=== PATIENT | female | born 1940 | race Caucasian/White ===

== ENCOUNTER → 2017-09-20 09:30 | Outpatient (CLI) | payer MEDICARE, OTHER, SELFPAY | PROVIDERS: PCP Nurse Practitioner Family; Visit Provider Nurse Practitioner Family | DX: M85.851 Other specified disorders of bone density and structure, right thigh (principal); Z78.0 Asymptomatic menopausal state; R29.890 Loss of height; E55.9 Vitamin D deficiency, unspecified; Z87.891 Personal history of nicotine dependence | CPT/HCPCS: 77080 ==

== ENCOUNTER 2017-11-20 20:49 | Emergency (ER) | payer MEDICARE, OTHER, SELFPAY ==
--- NOTE | 2017-11-20 21:02 | DI.RAD.S_ITS ---
PROCEDURE: XR CHEST 1V INDICATIONS: chest pain TECHNIQUE: One view of the chest was acquired. COMPARISON: [facility], [facility], CHEST 2 VIEW, 05/11/2013, 15:28. [facility], [facility], CHEST 2 VIEW, 10/03/2012, 15:35. [facility], [facility], CHEST 2 VIEW, 05/11/2013, 15:28. FINDINGS: Surgical changes and devices: None. Lungs and pleura: No pleural effusions or pneumothorax. Lungs are clear. Mediastinum: Mediastinal contours appear normal. Heart size is normal. Bones and chest wall: Chronic left rib fractures stable. No suspicious bony lesions. Overlying soft tissues appear unremarkable. IMPRESSION: No acute cardiopulmonary disease process. Dictated by: Janina Felder MD, PhD on 11/20/2017 at 21:41 Approved by: Janina Felder MD, PhD on 11/20/2017 at 21:42
[2017-11-20] MEDS: ASPIRIN 81 MG TAB 324 MG PO (21:17)
[2017-11-20 21:22] VITALS: BP 147/66; PULSE 66; RESP 16; TEMP 36.6; O2SAT 100
[2017-11-20 21:23] LABS: Add Manual Diff / Slide Review NO; Basophils Percent Auto 1.2 % (0-2); Eosinophils Percent Auto 0.1 % (2-4); Hematocrit 37.8 % (36-46); Hemoglobin 12.9 g/dL (12.0-16.0); Lymphocytes Percent Auto 9.7 % (25-40); Mean Corpuscular HGB Conc 34.1 % (30-36); Mean Corpuscular Hemoglobin 28.5 PG (26-34); Mean Corpuscular Volume 83.8 fL (80-100); Monocytes Percent Auto 5.2 % (3-14); Neutrophils Absolute Auto 9100 /uL (3000-5900); Neutrophils Percent Auto 83.8 % (50-75); Platelet Count 185 X10^3/uL (150-400); Red Blood Cell Count 4.52 X10^6/uL (4.0-5.2); Red Cell Distribution Width 16.1 % (11.6-14.8); White Blood Cell Count 10.9 X10^3/uL (4.5-11.0)
[2017-11-20 21:26] LABS: Alanine Aminotransferase 25 IU/L (9-52); Albumin Globulin Ratio 1.5 (1.0-2.8); Alkaline Phosphatase 73 U/L (38-126); Aspartate Aminotransferase 22 IU/L (14-36); BUN Creatinine Ratio 31.4 (6-22); Blood Urea Nitrogen 22 mg/dL (7-17); Calcium 9.4 mg/dL (8.4-10.2); Carbon Dioxide 27 mmol/L (22-32); Chloride 102 mmol/L (98-107); Creatine Kinase 48 U/L (30-135); Estimated Glomerular Filt Rate > 60.0 mL/min (>60); Globulin 2.7 g/dL (1.7-4.1); Glucose 103 mg/dL (80-110); HEMOLYSIS 24 (0-50); Lipase 94 U/L (23-300); Potassium 3.4 mmol/L (3.4-5.1); Sodium 139 mmol/L (137-145); Total Protein 6.7 g/dL (6.3-8.2)
[2017-11-20 21:28] VITALS: BP 147/66; PULSE 66; RESP 16; TEMP 36.6; O2SAT 100
[2017-11-20 21:39] LABS: Troponin I < 0.012 ng/mL (0.01-0.034)
[2017-11-20] MEDS: SODIUM CHLORIDE 0.9% 1,000 ML 150 ML IV (21:45)
--- NOTE | 2017-11-20 21:57 | DI.CT.S_ITS ---
PROCEDURE: CT ANGIO CHEST PE PROTOCOL INDICATIONS: CP, SOB, hypoxia. Use of exogenous estrogen, tachycardic TECHNIQUE: After the administration of intravenous contrast, 2 mm thick sections acquired from the pulmonary apices to the posterior costophrenic angles. 3-dimensional maximum intensity projection (MIP) coronal and sagittal reformats were then acquired through the thorax. For radiation dose reduction, the following was used: automated exposure control, adjustment of mA and/or kV according to patient size. COMPARISON: [facility], CT, ABDOMEN/PELVIS WITH CONTRAST, 09/18/2012, 15:45. [facility], CR, XR CHEST 1V, 11/20/2017, 21:31. FINDINGS: Image quality: Excellent. Pulmonary arteries: Pulmonary arteries are normal in size, and demonstrate no intraluminal filling defects to suggest central pulmonary embolism. Lungs and pleura: No infiltrate or pleural effusion. There is a 3 mm groundglass nodule in the right middle lobe (series 5 image 33). A 4 mm nodule is also noted in the right middle lobe (series 5 image 35). There are scars in lingula. No pleural effusions or pneumothorax. Central and peripheral airways are patent. Mediastinum: Heart size is normal, without pericardial effusion. No mediastinal or hilar adenopathy. Thoracic aorta is normal in caliber and enhancement. Esophagus is normal in caliber. Small hiatal hernia. Bones and chest wall: No suspicious bony lesions. Ribs and thoracic spine appear intact throughout. Thyroid gland is atrophic. No axillary or supraclavicular adenopathy. Abdomen: There are low-density nodule is seen liver, most likely hepatic cysts. Visualized upper abdominal solid organs appear normal in the early arterial phase of enhancement. IMPRESSION: 1. No evidence for central canal present. 2. A couple of subcentimeter lung nodules in the right middle lobe. Please see enclosed followup recommendation. 3. Multiple hepatic cysts Fleischner Society criteria for SOLID lung nodule followup. Nodule size (mm)Low-risk patientHigh-risk patient?4No follow-up neededFollow-up at 12 mo; if no change, no further follow-up>0-1Hricdk-bf CT at 12 mo; if no change, no further follow-up needed.Initial follow-up CT at 6-12 mo, then 18-24 mo if no change. >6-8Initial follow-up CT at 6-12 mo, then 18-24 mo if no change. Initial follow-up CT at 3-6 mo, then 9-12 mo and 24 mo if no change. >8Follow-up CT at 3, 9, 24 mo. Or PET and/or biopsy.Same as for low-risk pts. Fleischner Society criteria for SUB-SOLID lung nodule followup. Solitary pure ground-glass nodules5 mm or lessNo followup needed. >5 mm3 mo follow-up CT to confirm persistence. Then annual CT for 3 years. Part-solid nodules3 mo follow-up CT to confirm persistence. If persistent with solid component <5 mm, annual CT for at least 3 years. If solid component is 5 mm or more, biopsy or surgical resection. Consider PET-CT for lesions > 10 mm. Multiple sub-solid nodulesPure ground glass nodules [address] at 2 and 4 years. Pure ground glass nodules >5 mm without dominant lesion. [address] to confirm persistence, then annual followup CT for at least 3 years. Dominant nodule(s) with part-solid or solid component. [address] to confirm persistence. If persistent, consider biopsy or surgical resection, aryan if lesions have >5 mm solid component. Dictated by: Libia Pinzon M.D. on 11/21/2017 at 7:35 Transcribed by: AIDE on 11/21/2017 at 7:38 Approved by: Libia Pinzon M.D. on 11/21/2017 at 10:25
--- NOTE | 2017-11-20 22:01 | ED_ITS ---
HPI - Chest Pain General Chief Complaint: Chest Pain Stated Complaint: LT SIDED CHEST PAIN, HIGH BP Time Seen by Provider: 11/20/17 21:02 Source: patient Mode of arrival: ambulatory Limitations: no limitations History of Present Illness HPI narrative: 76-year-old female presents to the emergency department at the request of her primary care provider for the evaluation of sharp and stabbing, reproducible, pleuritic-type left-sided chest pain that woke her from sleep at 2 :00 a.m.. She denies any shortness of breath other than it hurting to take a deep breath. She is not dizzy nor weak or lightheaded. She denies any history of cancer, blood clots, or recent travel, however she does use exogenous estrogens. She denies any injury or overuse. MD complaint: chest pain Onset (ago): hour(s) Duration: intermittent Onset: awoke with symptoms Pain location: left chest Severity: moderate Quality: sharp Pain radiation: none Relieving factors: rest Exacerbating factors: inspiration Related Data Previous Rx's Medication Instructions Recorded atorvastatin [Lipitor] 10 mg PO HS #90 tab 10/01/16 levothyroxine [Synthroid] 125 mcg PO QDAY #90 tab 10/01/16 potassium chloride [Klor-Con M20] 20 meq PO Q DAY #90 tab 10/01/16 valsartan-hydrochlorothiazide 1 tab PO QDAY #90 tab 10/01/16 [Diovan HCT] estradiol [Vivelle-Dot] 1 patch TOPICAL SEE INSTRUCTIONS 11/09/16 #8 patch Allergies Allergy/AdvReac Type Severity Reaction Status Date / Time codeine [CODEINE] AdvReac Unknown somlescence Unverified 07/10/17 12:54 lisinopril [LISINOPRIL] AdvReac Unknown cough Unverified 07/10/17 12:54 Review of Systems Review of Systems All systems reviewed & are unremarkable except as noted in HPI and below Constitutional Denies chills, Denies fever(s), Denies lethargy and Denies weakness Eyes Denies change in vision, Denies eye discharge, Denies irritation and Denies loss of vision ENT Ears, Nose, Mouth, and Throat: Denies change in voice, Denies neck pain and Denies sore throat Cardiovascular Reports chest pain, Denies irregular heart rhythm, Denies lightheadedness, Denies palpitations, Denies dyspnea, Denies dyspnea on exertion and Denies orthopnea Respiratory Denies cough, Denies dyspnea, Denies dyspnea on exertion and Denies wheezing Gastrointestinal Gastrointestinal: Denies abdominal pain, Denies change in bowel habits, Denies diarrhea, Denies nausea and Denies vomiting Genitourinary Denies hematuria, Denies flank pain, Denies urinary incontinence and Denies urinary urgency Musculoskeletal Denies neck pain Integumentary/Breasts Denies pruritus, Denies erythema, Denies rash and Denies wounds Neurologic Denies confusion, Denies loss of vision and Denies weakness Psychiatric Denies anxiety, Denies confusion, Denies depression, Denies homicidal ideation and Denies suicidal ideation Endocrine Denies palpitations Hematologic/Lymphatic Denies easy bruising Allergic/Immunologic Denies wheezing [facility] Surgical History Status post appendectomy Status post hysterectomy Exam Initial Vital Signs Initial Vital Signs: Vital Signs Temperature 97.8 F 11/20/17 21:22 Pulse Rate 66 11/20/17 21:22 Respiratory Rate 16 11/20/17 21:22 Blood Pressure 147/66 H 11/20/17 21:22 Pulse Oximetry 100 11/20/17 21:22 Const General: cooperative and well developed Nutritional Appearance: well nourished Orientation: alert, awake, oriented x3 and not confused [facility] Head: normocephalic and atraumatic Ears: external ears normal and TM's normal bilaterally Nose: external nose normal and No nasal discharge Face and sinus: sinuses nontender, face symmetric, no sinus tenderness and No dry mucous membranes Mouth: oral mucosae normal and moist mucous membranes Teeth and gingiva: dentition normal Throat: tonsils normal and uvula midline Eyes General: appearance normal, both eyes and all related structures Eyelids: eyelids normal Conjunctivae: conjunctivae normal Sclera: sclerae normal Pupils: PERRL EOM: EOM intact bilaterally Neck Neck: normal visual inspection, trachea midline, No lymphadenopathy, No midline deformity and No JVD Lymphatic: No lymphedema Chest Chest: normal inspection of the chest Resp Effort & Inspection: normal respiratory effort, able to speak in complete sentences, no respiratory distress and no use of accessory muscles Auscultation: clear to auscultation bilaterally, no rales, no rhonchi and no wheezes Cardio Rate: regular rate Rhythm: regular rhythm Heart Sounds: no click, no gallops, no murmurs and no rubs Pulses: normal peripheral pulses GI Inspection: non-distended Palpation: soft, no hepatosplenomegaly, No guarding, No pulsatile mass and No tender Auscultation: normal bowel sounds Back/Spine/Pelvis Back: No CVA tenderness Cervical Spine: cervical ROM normal and No pain with cervical ROM Thoracic/Lumbar Spine: thoracic and lumbar spine normal to inspection Skin General: no rashes or lesions noted, No jaundice and No petechiae Neuro General: alert, oriented x3, gait normal and no focal motor deficits Speech: speech normal Extrem General: full ROM, no clubbing, cyanosis or edema, no pedal edema and no calf tenderness Psych Appearance: well kempt Mental Status: mental status grossly normal Attitude: cooperative Thought Content: normal and suicidality Judgment: judgment good Course Orders Ordered: ED Orders 11/20/17 21:02 XR chest 1V Stat EKG-12 Lead Stat 11/20/17 21:57 CT angio chest PE protocol Stat 11/20/17 22:22 Urine Culture Stat Urine Microscopic Stat Discontinued Medications Aspirin (Aspirin Chew) 324 mg PO NOW ONE Stop: 11/20/17 21:03 Last Admin: 11/20/17 21:17 Dose: 324 mg Sodium Chloride (Normal Saline 0.9%) 1,000 mls @ 150 mls/hr IV CONT ZANA Last Admin: 11/20/17 21:45 Dose: 150 mls/hr Vital Signs - 8 hr 11/20/17 23:24 11/21/17 00:11 Pulse Rate 54 L 56 L Respiratory Rate 18 17 Blood Pressure 128/61 H Blood Pressure [Left Arm] 142/70 H Pulse Oximetry 100 100 MDM - Chest Pain Differential Diagnosis Likely pneumothorax, stable angina, unstable angina pectoris, atypical chest pain, st elevation myocardial infarction, costochondritis, chest pain and biliary colic Medical Records Data Attestation: I reviewed the patient's medical records. Lab Data Result diagrams: 11/20/17 20:50 11/20/17 20:50 Lab Results 11/20/17 11/20/17 11/20/17 Range/Units 20:50 20:50 22:22 WBC 10.9 (4.5-11.0) X10^3/uL RBC 4.52 (4.0-5.2) X10^6/uL Hgb 12.9 (12.0-16.0) g/dL Hct 37.8 (36-46) % MCV 83.8 (80-100) fL MCH 28.5 (26-34) PG MCHC 34.1 (30-36) % RDW 16.1 H (11.6-14.8) % Plt Count 185 (150-400) X10^3/uL Neut % (Auto) 83.8 H (50-75) % Lymph % (Auto) 9.7 L (25-40) % [place] % (Auto) 5.2 (3-14) % Eos % (Auto) 0.1 L (2-4) % Baso % (Auto) 1.2 (0-2) % Neut # (Auto) 9100 H (1220-8715) /uL Sodium 139 (137-145) mmol/L Potassium 3.4 (3.4-5.1) mmol/L Chloride 102 (98-107) mmol/L Carbon Dioxide 27 (22-32) mmol/L BUN 22 H (7-17) mg/dL Creatinine 0.70 (0.52-1.04) mg/dL Estimated GFR > 60.0 (>60) mL/min BUN/Creatinine Ratio 31.4 H (6-22) Glucose 103 (80-110) mg/dL Calcium 9.4 (8.4-10.2) mg/dL Total Bilirubin 1.0 (0.2-1.3) mg/dL AST 22 (14-36) IU/L ALT 25 (9-52) IU/L Alkaline Phosphatase 73 (38-126) U/L Total Creatine Kinase 48 (30-135) U/L Troponin I < 0.012 (0.01-0.034) ng/mL Total Protein 6.7 (6.3-8.2) g/dL Albumin 4.0 (3.5-5.0) g/dL Globulin 2.7 (1.7-4.1) g/dL Albumin/Globulin Ratio 1.5 (1.0-2.8) Lipase 94 (23-300) U/L Urine RBC None seen (0-5/HPF) Urine WBC 1-5/hpf (0-5/HPF) Urine Bacteria Many (>30) H (None) Ur Culture Indicated? Specimen cultured Micro UA Comment Not Reportable Imaging Data CT scan - chest: Radiologist's impression: No PE or dissection ECG Data Attestation: I personally reviewed and interpreted this ECG as follows: Prior ECG tracings: not available for review Interpretation: NSR at 79, LVH Discharge Plan Departure Patient Disposition: Home Clinical Impression: Atypical chest pain Discharge Date/Time: 11/21/17 00:12 Interventions: ED Discharge Assessment Last Done: 11/21/17 00:11 Instructions: DI for Atypical Chest Pain Activity Restrictions/Additional Instructions: *You have been diagnosed with [ atypical, reproducible chest pain ] *What to do: *Take medications as directed *Follow up with your primary care provider in 2-3 days, call for an appointment. Let them know you were seen in the Emergency Department and that we ask that you be seen in follow up *Return to ER if you should have any new, worsening or concerning symptoms , such as [increasing pain, shortness of breath, fever over 101 F or other bothersome symptoms ] Prescriptions: No Action potassium chloride [Klor-Con M20] 20 MEQ tablet,ER particles/crystals 20 meq PO Q DAY Qty: 90 RF: 0 atorvastatin [Lipitor] 10 MG tablet 10 mg PO HS Qty: 90 RF: 0 levothyroxine [Synthroid] 125 MCG tablet 125 mcg PO QDAY Qty: 90 RF: 0 valsartan-hydrochlorothiazide [Diovan HCT] 160 MG/25 MG tablet 1 tab PO QDAY Qty: 90 RF: 0 estradiol [Vivelle-Dot] 0.05 MG/24 HR patch semiweekly 1 patch Topical SEE INSTRUCTIONS Qty: 8 RF: 0 Referrals: Grace Miramontes ARNP [Primary Care Provider] -
[2017-11-20 22:35] LABS: RBC Urine None Seen (0-5/HPF)
[2017-11-20 22:55] LABS: Bacteria Urine Many (>30); Culture Indicated Urine Specimen Cultured; WBC Urine 1-5/HPF (0-5/HPF)
[2017-11-20 23:24] VITALS: BP 142/70; PULSE 54; RESP 18; O2SAT 100
[2017-11-21 00:11] VITALS: BP 128/61; PULSE 56; RESP 17; O2SAT 100
--- NOTE | 2017-11-24 18:22 | PC.NURSE ---
Pt call-back, discussed urine culture results, pt states she is following up with her primary for same this week
== END 2017-11-21 00:12 | disposition home or self-care (01) ==
PROVIDERS: Emergency Provider Emergency Medicine; Family Provider Nurse Practitioner Family; PCP Nurse Practitioner Family
DX: R07.89 Other chest pain (principal)
CPT/HCPCS: 36591; 71045; 71275; 80053; 81003; 81015; 82550; 82553; 83690; 84484; 85025; 87077; 87086; 87186; 93005; 93010; 96360; 96361; 99283; 99285; Q9967

== ENCOUNTER 2017-11-21 10:14 | Emergency (ER) | payer MEDICARE, OTHER, SELFPAY ==
[2017-11-21 10:18] VITALS: BP 152/63; PULSE 77; RESP 16; TEMP 37.2; O2SAT 98; BMI 30.7
--- NOTE | 2017-11-21 10:23 | ED_ITS ---
HPI - Arrhythmia/Palpitations General Chief Complaint: Arrhythmia/Palpitations Stated Complaint: IRREGLAR HEART BEAT Time Seen by Provider: 11/21/17 10:16 Source: patient Mode of arrival: ambulatory Limitations: no limitations History of Present Illness HPI narrative: 76-year-old female here for evaluation of palpitations. She was seen here within the past 24 hr for left-sided chest pain was diagnosed with chest wall pain. She labs and a CTA of her chest which were unremarkable. Patient states she went home and this morning she felt like her heart was beating fast and was skipping beats. Has never had anything like this before. Did not have a change in her chest pain. No lightheadedness. No shortness of breath. Patient was traveling today and wanted to come get checked out prior to traveling to make sure everything was okay. Related Data Previous Rx's Medication Instructions Recorded atorvastatin [Lipitor] 10 mg PO HS #90 tab 10/01/16 levothyroxine [Synthroid] 125 mcg PO QDAY #90 tab 10/01/16 potassium chloride [Klor-Con M20] 20 meq PO Q DAY #90 tab 10/01/16 valsartan-hydrochlorothiazide 1 tab PO QDAY #90 tab 10/01/16 [Diovan HCT] estradiol [Vivelle-Dot] 1 patch TOPICAL SEE INSTRUCTIONS 11/09/16 #8 patch Allergies Allergy/AdvReac Type Severity Reaction Status Date / Time codeine [CODEINE] AdvReac Unknown somlescence Verified 11/21/17 10:18 lisinopril [LISINOPRIL] AdvReac Unknown cough Verified 11/21/17 10:18 Review of Systems Constitutional Denies chills and Denies fever(s) ENT Ears, Nose, Mouth, and Throat: Denies vertigo and Denies dizziness Cardiovascular Denies chest pain, Denies syncope, Reports rapid heart rate, Denies edema, Reports irregular heart rhythm, Denies leg edema, Denies lightheadedness, Reports palpitations and Denies dyspnea Respiratory Denies cough and Denies dyspnea Gastrointestinal Gastrointestinal: Denies abdominal pain Musculoskeletal Denies myalgias and Denies arthralgias Integumentary/Breasts Denies lesions and Denies rash Neurologic Denies confusion, Denies vertigo, Denies dizziness and Denies syncope Psychiatric Denies confusion Endocrine Reports palpitations Hematologic/Lymphatic Denies easy bleeding and Denies easy bruising [facility] Medical History Polymyalgia rheumatica (Acute) Surgical History Status post appendectomy Status post hysterectomy Exam Initial Vital Signs Initial Vital Signs: Vital Signs Temperature 98.9 F 11/21/17 10:18 Pulse Rate 77 11/21/17 10:18 Respiratory Rate 16 11/21/17 10:18 Blood Pressure 152/63 H 11/21/17 10:18 Pulse Oximetry 98 11/21/17 10:18 Const General: cooperative, healthy appearing, comfortable, well developed, well groomed and No acute distress Orientation: alert, awake and oriented x3 HENMT Head: normal to inspection, normocephalic and atraumatic Resp Effort & Inspection: normal respiratory effort Auscultation: clear to auscultation bilaterally Cardio Rate: regular rate Rhythm: regular rhythm Heart Sounds: no murmurs Pulses: radial pulses present Skin Lesions: no lesions Rashes: no rashes Neuro General: alert, awake and oriented x3 Extrem General: normal to inspection and capillary refill normal Psych Appearance: grossly normal and well kempt Course Orders Ordered: ED Orders 11/21/17 10:24 EKG-12 Lead Stat Vital Signs - 8 hr 11/21/17 10:18 11/21/17 10:33 11/21/17 10:49 Temperature 98.9 F Pulse Rate 77 83 78 Respiratory Rate 16 21 15 Blood Pressure 152/63 H Blood Pressure [Right Arm] 137/76 H 137/76 H Pulse Oximetry 98 97 99 MDM - Arrhythmia/Palpitations Medical Records Attestation: I reviewed the patient's medical records. ECG Data Attestation: I personally reviewed and interpreted this ECG as follows: Prior ECG tracings: not available for review Interpretation: Sinus rhythm Ventricular rate 80 for Occasional PACs Normal QRS Normal QTC Nonspecific ST T wave changes MDM Narrative Medical decision making narrative: Patient was having PACs and occasional PVCs here in the emergency department. She was not feeling the PVCs however when I had her feel her pulse and when she states that she felt the symptoms that she had this morning they were corresponding to the PACs. She had extensive cardiac workup last evening when she was here to include a CTA of her chest. A feel that her symptoms are most likely related to the PACs and PVCs. Informed her that she needed to contact her primary doctor to discuss the indications for a Holter monitor. She was given return precautions. Her was at bedside for these discussions. They both expressed understanding and agreement with plan. Discharge Plan Departure Patient Disposition: Home Clinical Impression: Palpitations, PAC (premature atrial contraction), Frequent PVCs Discharge Date/Time: 11/21/17 10:55 Interventions: ED Discharge Assessment Last Done: 11/21/17 10:54 Instructions: DI for Arrhythmias, DI for Palpitations Activity Restrictions/Additional Instructions: Recommend that you contact your primary doctor to discuss the indications for a Holter monitor. Return to the emergency department for any new symptoms, palpitations that are associated with chest pain, mid lightheadedness, dizziness , shortness of breath. Continue all of your medications as directed. Prescriptions: No Action potassium chloride [Klor-Con M20] 20 MEQ tablet,ER particles/crystals 20 meq PO Q DAY Qty: 90 RF: 0 atorvastatin [Lipitor] 10 MG tablet 10 mg PO HS Qty: 90 RF: 0 levothyroxine [Synthroid] 125 MCG tablet 125 mcg PO QDAY Qty: 90 RF: 0 valsartan-hydrochlorothiazide [Diovan HCT] 160 MG/25 MG tablet 1 tab PO QDAY Qty: 90 RF: 0 estradiol [Vivelle-Dot] 0.05 MG/24 HR patch semiweekly 1 patch Topical SEE INSTRUCTIONS Qty: 8 RF: 0
[2017-11-21 10:33] VITALS: BP 137/76; PULSE 83; RESP 21; O2SAT 97
[2017-11-21 10:49] VITALS: BP 137/76; PULSE 78; RESP 15; O2SAT 99
== END 2017-11-21 10:55 | disposition home or self-care (01) ==
PROVIDERS: Emergency Provider Emergency Medicine; PCP Nurse Practitioner Family
DX: I49.1 Atrial premature depolarization (principal); I49.3 Ventricular premature depolarization; R00.2 Palpitations
CPT/HCPCS: 93005; 93010; 99282; 99283

== ENCOUNTER → 2021-09-29 10:55 | Outpatient (CLI) | payer MEDICARE, OTHER, SELFPAY ==
--- NOTE | 2021-09-29 | DI.MG.S_ITS ---
BILATERAL DIGITAL SCREENING MAMMOGRAM 3D/2D WITH CAD: 09/29/2021 CLINICAL: Routine screening. Comparison is made to exams dated: 10/09/2016 mammogram, 07/23/2012 mammogram, and 05/24/2011 mammogram - [facility]. There are scattered fibroglandular elements in both breasts. Current study was also evaluated with a Computer Aided Detection (CAD) system. No significant masses, calcifications, or other findings are seen in either breast. There has been no significant interval change. IMPRESSION: NEGATIVE There is no mammographic evidence of malignancy. A 1 year screening mammogram is recommended. Based on the Tyrer Cuzick model (a risk assessment model) the patient's lifetime risk is 0.6% and her 10 year risk is 0.0%. According to the ACR, ACS, and NCCN guidelines, an annual breast MRI exam along with mammogram is recommended if the patient's lifetime risk is 20% or greater. This exam was interpreted at Station ID: [id number]. NOTE: For mammograms, a report in lay terms will be sent to the patient. Approximately 15% of breast malignancies will not be visualized mammographically. In the management of a palpable breast mass, a negative mammogram must not discourage biopsy of a clinically suspicious lesion. Electronically Signed By: Mallory morales/dee:09/29/2021 14:22:20 letter sent: Normal Exam ACR BI-RADS Category 1: Negative [id number]
== END ==
PROVIDERS: PCP Nurse Practitioner Family; Referring Provider Nurse Practitioner Family; Visit Provider Nurse Practitioner Family
DX: Z12.31 Encounter for screening mammogram for malignant neoplasm of breast (principal)
CPT/HCPCS: 77063; 77067

== ENCOUNTER → 2022-06-04 09:31 | Outpatient (CLI) | payer MEDICARE, OTHER, SELFPAY ==
--- NOTE | 2022-06-04 09:58 | DI.DEXA.S_ITS ---
Indication: postmenopausal; screening for osteoporosis; Referring Provider: LEE HARRISON Study: Bone densitometry was performed. Exam Date: June 04, 2022 Accession number: [id number] Bone Density: Region BMD T-score Z-score Classification AP Spine(L1-L4) 1.161 1.0 3.8 Normal Femoral Neck (Left) 0.784 -0.6 1.8 Normal Total Hip (Left) 1.006 0.5 2.7 Normal Femoral Neck (Right) 0.737 -1.0 1.4 Normal Total Hip (Right) 0.991 0.4 2.6 Normal Total Hip Mean 0.998 0.5 2.7 Normal World Health Organization criteria for BMD impression classify patients as: Normal (T-score at or above -1.0), Osteopenia (T-score between -1.0 and -2.5), or Osteoporosis (T-score at or below -2.5). 10-year Fracture Risk: FRAX not reported because: All T-scores for Spine Total, Hip Total, Femoral Neck at or above -1.0 Previous Exams: -- Region Exam Age BMD T-score BMD Change BMD Change Date g/cm2 vs Baseline vs Previous -- AP Spine (L1-L4) 06/04/2022 81 1.161 1.0 -0.262 (-18.4%)# -0.262 (-18.4%)# 09/20/2017 76 1.423 3.4 -- *Denotes significance at 95% confidence level, LSC for AP Spine = 0.022 g/cm2 # Denotes dissimilar scan types or analysis methods Impression: The patient has normal bone mass. No significant bone loss was observed. Discussion: BONE DENSITY IS ABOVE THE MINIMUM DESIRABLE LEVEL AT ALL SKELETAL SITES TESTED. This patient?s bone mineral density is above the minimum desirable level (T-score -1.0 or better) at all sites measured. The patient should follow a healthful lifestyle (good nutrition with adequate calcium and vitamin D, and appropriate weight-bearing exercise). Follow-Up: Consider repeating this study in 5 years or sooner if there is some new clinical indication. Reported by: Mannie Boles M.D. on 06/04/2022 10:07:00 AM.
== END ==
PROVIDERS: PCP Nurse Practitioner Family; Referring Provider Nurse Practitioner Family; Visit Provider Nurse Practitioner Family
DX: Z78.0 Asymptomatic menopausal state (principal); Z13.820 Encounter for screening for osteoporosis; Z92.23 Personal history of estrogen therapy; Z90.710 Acquired absence of both cervix and uterus
CPT/HCPCS: 77080

== ENCOUNTER 2023-01-31 11:45 | Emergency (ER) | payer MEDICARE, OTHER, SELFPAY ==
[2023-01-31] VITALS (10 sets, daily range): BP systolic 100–123; BP diastolic 52–69; PULSE 70–79; RESP 13–24; TEMP 37.1; O2SAT 92–99; BMI 27.8
--- NOTE | 2023-01-31 12:25 | PC.NURSE ---
provider at bedside for initial eval
--- NOTE | 2023-01-31 12:27 | DI.RAD.S_ITS ---
PROCEDURE: XR RIBS LT MIN 3V W CXR1V INDICATIONS: Sharp L sided CP s/p cough TECHNIQUE: 3 views of the left ribs were acquired, along with a single view chest. COMPARISON: [facility], CHEST 2 VIEW, 05/11/2013, 15:28. FINDINGS: Surgical changes and devices: None. Bones and chest wall: Mild left lateral rib deformity, unchanged. Lungs and pleura: There is a minimal left effusion. Mediastinum: Mediastinal contours appear normal. Heart size is normal. IMPRESSION: No visualized acute fracture or dislocation. However, if clinical concern and/or pain persist, short interval imaging followup in 7-10 days is recommended, as occult injury cannot be definitively excluded. Dictated by: Gloria Simon M.D. on 01/31/2023 at 13:19 Approved by: Gloria Simon M.D. on 01/31/2023 at 13:20
--- NOTE | 2023-01-31 12:33 | ED.CHESTPAIN ---
HPI - Chest Pain <Ni Ashby PA-C - Last Filed: 02/01/23 10:32> General Chief Complaint: Chest Pain Stated Complaint: pain in LT side/sent by EMS [facility] Time Seen by Provider: 01/31/23 12:11 Source: patient Mode of arrival: Ambulatory Limitations: no limitations History of Present Illness HPI narrative: 82-year-old female presents to ED with her . She has been experiencing left-sided mid back pain sharp in nature onset last 24 hours. She reports having COVID 2 months ago and within the last few weeks experiencing a return of a dry hacking cough that is nonproductive. Her COVID infection was well tolerated without need for specialty care. She does report a slight fever last night of 100.1. She reports being treated for a urinary tract infection about 2 weeks ago with 5 days of nitrofurantoin. She denies current urinary symptoms including urgency dysuria or frequency. However her previous UTI was diagnosed after a few days of fever only. She denies shortness of breath anterior chest pain, dysuria, headache, confusion. Her pain is relieved by sitting up and exacerbated by lying down or by movement especially sneezing or coughing. She denies radiation of the pain into her neck arm shoulder, or anteriorly. She took 500 mg of Tylenol this morning with little relief. Related Data Previous Rx's Medication Instructions Recorded atorvastatin 10 mg tablet (Lipitor) 10 mg PO HS #90 tabs 10/01/16 levothyroxine 125 mcg tablet 125 mcg PO QDAY #90 tabs 10/01/16 (Synthroid) potassium chloride 20 mEq 20 meq PO Q DAY #90 tabs 10/01/16 tablet,extended release(part/cryst) (Klor-Con M) valsartan 160 1 tab PO QDAY #90 tabs 10/01/16 mg-hydrochlorothiazide 25 mg tablet (Diovan HCT) estradiol 0.05 mg/24 hr semiweekly 1 patch topical SEE INSTRUCTIONS 11/09/16 transdermal patch (Vivelle-Dot) #8 patches cefdinir 300 mg capsule 300 mg PO BID #10 caps 01/31/23 Allergies Allergy/AdvReac Type Severity Reaction Status Date / Time codeine [CODEINE] AdvReac Unknown somlescence Verified 11/21/17 10:18 lisinopril [LISINOPRIL] AdvReac Unknown cough Verified 11/21/17 10:18 Review of Systems <Ni Ashby PA-C - Last Filed: 02/01/23 10:32> Review of Systems ROS Unobtainable: All systems reviewed & are unremarkable except as noted in HPI and below Patient History <Ni Ashby PA-C - Last Filed: 02/01/23 10:32> Medical History (Updated 02/15/23 @ 00:01 by ) Polymyalgia rheumatica Surgical History Status post hysterectomy Status post appendectomy alcohol intake frequency: holidays/special occasions only Substance Use Type: does not use Exam <Ni Ashby PA-C - Last Filed: 02/01/23 10:32> Narrative Exam Narrative: GEN: AOx3 and in mild distress EYES: Pupils are equal, round, and reactive to light and accommodation. Extraoccular muscles are intact bilaterally. There is no subconjunctival hemorrhage or exudate. CHEST: Lungs are clear to auscultation bilaterally and free of wheezes, rales, or rhonchi. Heart rate is regular rhythm, there are no murmurs, clicks, rubs, or gallops. Point tenderness over the posterolateral left lower ribs. ABD: Abdomen is soft and nontender. No CVA tenderness to percussion.There is no guarding or rebound. Bowel sounds are normal in all 4 quadrants. There is no mass or organomegaly. EXT: Full painless ROM of all extremities with no loss of sensation or strength. SKIN: Warm, pink, and dry. No erythema or rash Initial Vital Signs Initial Vital Signs: Vital Signs Temperature 98.8 F 01/31/23 11:50 Pulse Rate 74 01/31/23 11:50 Respiratory Rate 18 01/31/23 11:50 Blood Pressure 123/58 L 01/31/23 11:50 Pulse Oximetry 99 01/31/23 11:50 Oxygen Delivery Method Room Air 01/31/23 11:50 <Jone Fernandez MD - Last Filed: 02/18/23 07:08> Initial Vital Signs Initial Vital Signs: Vital Signs Temperature 98.8 F 01/31/23 11:50 Pulse Rate 74 01/31/23 11:50 Respiratory Rate 18 01/31/23 11:50 Blood Pressure 123/58 L 01/31/23 11:50 Pulse Oximetry 99 01/31/23 11:50 Oxygen Delivery Method Room Air 01/31/23 11:50 Course <Ni Ashby PA-C - Last Filed: 02/01/23 10:32> Course Course Narrative: Patient experienced significant relief of her pain after 15 mg IV ketorolac Orders Ordered: Discontinued Medications Ketorolac Tromethamine (Ketorolac 30 Mg/Ml Vial) 15 mg IV NOW ONE Stop: 01/31/23 12:32 Last Admin: 01/31/23 12:34 Dose: 15 mg Documented By: KF Vital Signs Vital signs: Vital Signs - 8 hr 01/31/23 11:50 01/31/23 12:07 01/31/23 12:30 Temperature 98.8 F Pulse Rate 74 75 70 Respiratory Rate 18 24 18 Blood Pressure 123/58 L Pulse Oximetry 99 96 Oxygen Delivery Method Room Air 01/31/23 12:52 01/31/23 12:52 01/31/23 13:00 Temperature Pulse Rate 79 73 Respiratory Rate 13 22 Blood Pressure 122/58 L Pulse Oximetry 97 95 Oxygen Delivery Method 01/31/23 13:30 Temperature Pulse Rate 72 Respiratory Rate 18 Blood Pressure Pulse Oximetry 92 Oxygen Delivery Method <Jone Fernandez MD - Last Filed: 02/18/23 07:08> Orders Ordered: Discontinued Medications Ketorolac Tromethamine (Ketorolac 30 Mg/Ml Vial) 15 mg IV NOW ONE Stop: 01/31/23 12:32 Last Admin: 01/31/23 12:34 Dose: 15 mg Documented By: KF Vital Signs Vital signs: Vital Signs - 8 hr 01/31/23 11:50 01/31/23 12:07 01/31/23 12:30 Temperature 98.8 F Pulse Rate 74 75 70 Respiratory Rate 18 24 18 Blood Pressure 123/58 L Pulse Oximetry 99 96 Oxygen Delivery Method Room Air 01/31/23 12:52 01/31/23 12:52 01/31/23 13:00 Temperature Pulse Rate 79 73 Respiratory Rate 13 22 Blood Pressure 122/58 L Pulse Oximetry 97 95 Oxygen Delivery Method 01/31/23 13:30 Temperature Pulse Rate 72 Respiratory Rate 18 Blood Pressure Pulse Oximetry 92 Oxygen Delivery Method MDM - Chest Pain <Ni Ashby PA-C - Last Filed: 02/01/23 10:32> Differential Diagnosis Differential diagnosis: Likely costochondritis Condition is:: Improved Condition is at treatment goal?: Yes Discussed with:: Dr Fernandez Lab Data 01/31/23 12:18 01/31/23 12:18 Labs: Lab Results 01/31/23 01/31/23 Range/Units 12:18 12:45 WBC 6.8 (4.5-11.0) X10^3/uL RBC 3.77 L (4.0-5.2) X10^6/uL Hgb 10.9 L (12.0-16.0) g/dL Hct 32.5 L (36-46) % MCV 86.4 (80-100) fL MCH 28.9 (26-34) PG MCHC 33.5 (30-36) % RDW 14.9 H (11.6-14.8) % Plt Count 231 (150-400) X10^3/uL Neut % (Auto) 76.3 H (50-75) % Lymph % (Auto) 12.5 L (25-40) % [place] % (Auto) 9.5 (3-14) % Eos % (Auto) 1.0 L (2-4) % Baso % (Auto) 0.7 (0-2) % Neut # (Auto) 5200 (6923-4044) /uL Lymph # (Auto) 800 L (7569-8448) /uL [place] # (Auto) 600 (0-900) /uL Eos # (Auto) 100 (0-450) /uL Baso # (Auto) 0 (0-100) /uL Sodium 134 L (137-145) mmol/L Potassium 4.2 (3.4-5.1) mmol/L Chloride 102 (98-107) mmol/L Carbon Dioxide 23 (22-32) mmol/L BUN 27 H (7-17) mg/dL Creatinine 0.93 (0.52-1.04) mg/dL Estimated GFR > 60 (>60) mL/min BUN/Creatinine Ratio 29.0 H (6-22) Glucose 120 H (80-110) mg/dL Calcium 9.6 (8.4-10.2) mg/dL Total Bilirubin 0.8 (0.2-1.3) mg/dL AST 26 (14-36) IU/L ALT 17 (<35) IU/L Alkaline Phosphatase 62 (38-126) U/L Troponin I < 0.012 (0.01-0.034) ng/mL Total Protein 7.1 (6.3-8.2) g/dL Albumin 4.0 (3.5-5.0) g/dL Globulin 3.1 (1.7-4.1) g/dL Albumin/Globulin Ratio 1.3 (1.0-2.8) Urine Color Yellow Urine Appearance Clear Urine pH 5.5 (4.5-8.0) Ur Specific [place] 1.020 (1.000-1.035) Urine Protein Negative (Negative) Urine Glucose (UA) Negative (Negative) g/dL Urine Ketones Negative (NEGATIVE) Urine Occult Blood 2+ H (Negative) Urine Nitrate Positive H (Negative) Urine Bilirubin Negative (NEGATIVE) Urine Urobilinogen 0.2 (0.2) E.U./dL Ur Leukocyte Esterase 1+ H (NEGATIVE) Urine RBC 1-5/hpf (0-5/HPF) Urine WBC 10-30/hpf H (0-5/HPF) Ur Squamous Epith Cells 0-1 /hpf (0-5/HPF) Urine Bacteria Many (>30) H (None) Ur Culture Indicated? Specimen cultured Imaging Data AP and ribs: Radiologist's Impression: Patient: Payal López MR#: [id number] : 1940 Acct:[id number] Age/Sex: 82 / F Date of Service: 01/31/23 Loc: ED Accession Number: [id number] Procedure: XR ribs LT min 3V w CXR1V Ordering Provider: Ni Ashby P.A-C PROCEDURE: XR RIBS LT MIN 3V W CXR1V INDICATIONS: Sharp L sided CP s/p cough TECHNIQUE: 3 views of the left ribs were acquired, along with a single view chest. COMPARISON: [facility], CHEST 2 VIEW, 05/11/2013, 15:28. FINDINGS: Surgical changes and devices: None. Bones and chest wall: Mild left lateral rib deformity, unchanged. Lungs and pleura: There is a minimal left effusion. Mediastinum: Mediastinal contours appear normal. Heart size is normal. IMPRESSION: No visualized acute fracture or dislocation. However, if clinical concern and/or pain persist, short interval imaging followup in 7-10 days is recommended, as occult injury cannot be definitively excluded. Dictated by: Gloria Simon M.D. on 01/31/2023 at 13:19 Approved by: Gloria Simon M.D. on 01/31/2023 at 13:20 CT scan - abdomen/pelvis: Radiologist's Impression: Patient: Payal López MR#: [id number] : 1940 Acct:[id number] Age/Sex: 82 / F Date of Service: 01/31/23 Loc: ED Accession Number: [id number] Procedure: CT abdomen pelvis w con Ordering Provider: Ni Ashby P.A-C PROCEDURE: CT ABDOMEN PELVIS W CON INDICATIONS: Left flank pain with fever, pos UA TECHNIQUE: After the administration of intravenous contrast, axial sections acquired from the lung bases to the pubic symphysis. Coronal and sagittal reformats were performed. For radiation dose reduction, the following was used: automated exposure control, adjustment of mA and/or kV according to patient size. COMPARISON: [facility], CT, ABDOMEN/PELVIS WITH CONTRAST, 09/18/2012, 15:45. FINDINGS: Image quality: Excellent. Lung bases: Small left pleural effusion is seen. Mild dependent atelectasis in posterior aspect of bilateral lung bases are seen. Emphysematous changes also noted.. Heart: Heart size is normal, no pericardial effusion. ABDOMEN: Liver: Liver is normal in size. Multiple well-circumscribed hypodensities are again seen scattered in liver parenchyma measures up to 2.7 x 2.1 cm in size in right hepatic lobe unchanged in size and distribution as compared to 2013 study and likely represent benign process such as hepatic cysts.. Gallbladder: Gallbladder is within normal limits. Biliary ducts: Unremarkable. Pancreas: Unremarkable. Spleen: Spleen is normal in size. Multiple fairly well-circumscribed hypodensities are seen scattered in splenic parenchyma and measures up to 2.3 x 2.1 cm in size in medial aspect of spleen and 34 Hounsfield unit in density series 2, image 24. Adrenal Glands: Unremarkable. Kidneys and Ureters: Bilateral kidneys show normal size and enhancement. No obstructing renal stones or hydronephrosis. 2-3 millimeter bilateral nonobstructing renal calculi are seen. Bilateral renal cortical cysts are seen measures up to 2.3 x 2.3 cm in size in midpole of right kidney compared to 1 cm in size in 2013 study.. Stomach and Bowel: There is a small hiatal hernia. There is no bowel obstruction or abnormal bowel wall thickening. No mesenteric fat stranding. No abscess collection. Sigmoid diverticulosis is seen without colonic wall thickening or pericolonic fat stranding. Peritoneum: No abnormal intraperitoneal fluid. No free air. Ventral Wall: No hernias. Abdominal Nodes: No retroperitoneal or mesenteric adenopathy by size criteria. Vessels: There is ectasias of infrarenal abdominal aorta measures up to 2.7 cm in largest AP diameter. Moderate atherosclerotic calcifications throughout abdominal aorta is seen. IVC is normal in size. PELVIS: Pelvic Organs: Unremarkable. Bladder: Unremarkable. Pelvic Nodes: No enlarged lymph nodes. Miscellaneous: Small bilateral inguinal hernia are seen containing fat only. Bones: No suspicious bony lesions. No acute vertebral body compression fracture. IMPRESSION: 1. Tiny bilateral nonobstructing renal calculi and bilateral renal cysts as described above. No obstructing renal stones. No hydronephrosis or hydroureter. Normal appearing urinary bladder. 2. No bowel obstruction or abnormal bowel wall thickening. Sigmoid diverticulosis without evidence of acute diverticulitis. No free fluid or free air. No abscess collection. 3. Stable appearing hypodense lesions scattered in liver parenchyma likely represent benign process such as hepatic cysts. 4. Multiple well-circumscribed hypodensities scattered in splenic parenchyma increased in size and numbers compared to 2013 study concerning for splenic cysts versus areas of infarction. 5. Small left pleural effusion and bibasilar dependent atelectasis. 6. Ectasias of infrarenal abdominal aorta measures up to 2.7 cm in largest AP diameter. No abdominal aortic aneurysm. Moderate atherosclerotic disease. Dictated by: Brian Russ M.D. on 01/31/2023 at 14:34 Approved by: Brian Russ M.D. on 01/31/2023 at 14:41 ECG Data Interpretation: Regular rate normal sinus rhythm. Reviewed by Jone HALE Narrative Medical decision making narrative: Multiple etiologies for patient's symptoms considered including, but not limited to: Chest wall strain s/p cough; persistant UTI, positive UA without symptoms. Prior Charts reviewed: Labs reviewed and interpreted by myself: Imaging reviewed: EKG, Rib xray and abd ct c contrast discussed with Dr. Fernandez. No concern for kidney pathology. Consultations: Patient's symptoms improved over duration of stay with above-stated therapies. Findings and discharge diagnosis discussed with patient/family followed by verbalization of understanding Return precautions discussed with patient/family whom verbalize understanding of diagnosis and plan <Jone Fernandez MD - Last Filed: 02/18/23 07:08> Lab Data Labs: Lab Results 01/31/23 01/31/23 Range/Units 12:18 12:45 WBC 6.8 (4.5-11.0) X10^3/uL RBC 3.77 L (4.0-5.2) X10^6/uL Hgb 10.9 L (12.0-16.0) g/dL Hct 32.5 L (36-46) % MCV 86.4 (80-100) fL MCH 28.9 (26-34) PG MCHC 33.5 (30-36) % RDW 14.9 H (11.6-14.8) % Plt Count 231 (150-400) X10^3/uL Neut % (Auto) 76.3 H (50-75) % Lymph % (Auto) 12.5 L (25-40) % [place] % (Auto) 9.5 (3-14) % Eos % (Auto) 1.0 L (2-4) % Baso % (Auto) 0.7 (0-2) % Neut # (Auto) 5200 (3841-2037) /uL Lymph # (Auto) 800 L (8589-1018) /uL [place] # (Auto) 600 (0-900) /uL Eos # (Auto) 100 (0-450) /uL Baso # (Auto) 0 (0-100) /uL Sodium 134 L (137-145) mmol/L Potassium 4.2 (3.4-5.1) mmol/L Chloride 102 (98-107) mmol/L Carbon Dioxide 23 (22-32) mmol/L BUN 27 H (7-17) mg/dL Creatinine 0.93 (0.52-1.04) mg/dL Estimated GFR > 60 (>60) mL/min BUN/Creatinine Ratio 29.0 H (6-22) Glucose 120 H (80-110) mg/dL Calcium 9.6 (8.4-10.2) mg/dL Total Bilirubin 0.8 (0.2-1.3) mg/dL AST 26 (14-36) IU/L ALT 17 (<35) IU/L Alkaline Phosphatase 62 (38-126) U/L Troponin I < 0.012 (0.01-0.034) ng/mL Total Protein 7.1 (6.3-8.2) g/dL Albumin 4.0 (3.5-5.0) g/dL Globulin 3.1 (1.7-4.1) g/dL Albumin/Globulin Ratio 1.3 (1.0-2.8) Urine Color Yellow Urine Appearance Clear Urine pH 5.5 (4.5-8.0) Ur Specific [place] 1.020 (1.000-1.035) Urine Protein Negative (Negative) Urine Glucose (UA) Negative (Negative) g/dL Urine Ketones Negative (NEGATIVE) Urine Occult Blood 2+ H (Negative) Urine Nitrate Positive H (Negative) Urine Bilirubin Negative (NEGATIVE) Urine Urobilinogen 0.2 (0.2) E.U./dL Ur Leukocyte Esterase 1+ H (NEGATIVE) Urine RBC 1-5/hpf (0-5/HPF) Urine WBC 10-30/hpf H (0-5/HPF) Ur Squamous Epith Cells 0-1 /hpf (0-5/HPF) Urine Bacteria Many (>30) H (None) Ur Culture Indicated? Specimen cultured Discharge Plan Departure Patient Disposition: Home Clinical Impression: Muscle strain of chest wall, Chest pain, UTI (urinary tract infection) Instructions: DI for Urinary Tract Infection (UTI), DI for Chest Pain Activity Restrictions/Additional Instructions: *You have been diagnosed with muscle strain and urinary tract infection. I advise you to take 600 mg of ibuprofen when you return home today and then another dose of 600 mg after dinner tonight. You can start reducing the dosage of ibuprofen starting tomorrow to 400 mg 2-3 times per day with food. I encourage you to walk and take deep breaths as possible which will help with small effusion. Please complete your full 5 days of antibiotics even without symptoms. If you have any new or concerning symptoms please follow-up with your primary provider or return to the ER as needed. *What to do: *Please continue to take your regular medications as directed. [ ] New medication prescriptions sent to your pharmacy: [X ] New medication written as a paper prescription [] No new medications given *Please follow up with your primary care provider in 2-3 days, call for an appointment. Let them know you were seen in the Emergency Department and that we ask that you be seen in follow up. We will electronically transmit a record of today's note if your PCP is in our system *If you do not have a primary care provider please contact the [facility] Resource line at [phone]. They will ask some questions about your medical history and help get you set up with a doctor in the community. *Return to Emergency Department if you should have any new, worsening or concerning symptoms, such as [fever greater than 101 F, shaking chills, worsening pain, persistent vomiting or other bothersome symptoms] 02/01/23 - Called patient at home. She reports near complete resolution of her pain. She has taken 2 doses of ibuprofen since her discharge yesterday 400 mg each. She has tolerated her antibiotic. She is well and getting ready to go for a walk. Discussed again follow-up with her PMD. Prescriptions: New cefdinir 300 mg capsule 300 mg PO BID Qty: 10 0RF No Action potassium chloride [Klor-Con M20] 20 MEQ tablet,ER particles/crystals 20 meq PO Q DAY Qty: 90 0RF atorvastatin [Lipitor] 10 MG tablet 10 mg PO HS Qty: 90 0RF levothyroxine [Synthroid] 125 MCG tablet 125 mcg PO QDAY Qty: 90 0RF valsartan-hydrochlorothiazide [Diovan HCT] 160 MG/25 MG tablet 1 tab PO QDAY Qty: 90 0RF estradiol [Vivelle-Dot] 0.05 MG/24 HR patch semiweekly 1 patch Topical SEE INSTRUCTIONS Qty: 8 0RF Referrals: Grace Miramontes ARNP [Primary Care Provider] - Stand Alone Forms: Patient Portal/API ED Sign-out <Jone Fernandez MD - Last Filed: 02/18/23 07:08> Cosign ED Attending Dylon Attestation: I was immediately available in the department for consultation. ?This documentation has been reviewed and I agree with assessment and plan. Supervised by Jone Fernandez MD
[2023-01-31] MEDS: KETOROLAC 30 MG/ML VIAL 15 MG IV (12:34)
[2023-01-31 12:39] LABS: Add Manual Diff / Slide Review NO; Basophils Absolute Auto 0 /uL (0-100); Basophils Percent Auto 0.7 % (0-2); Eosinophils Absolute Auto 100 /uL (0-450); Hematocrit 32.5 % (36-46); Hemoglobin 10.9 g/dL (12.0-16.0); Lymphocytes Absolute Auto 800 /uL (1100-4500); Lymphocytes Percent Auto 12.5 % (25-40); Mean Corpuscular HGB Conc 33.5 % (30-36); Mean Corpuscular Hemoglobin 28.9 PG (26-34); Mean Corpuscular Volume 86.4 fL (80-100); Monocytes Absolute Auto 600 /uL (0-900); Monocytes Percent Auto 9.5 % (3-14); Neutrophils Absolute Auto 5200 /uL (1500-7000); Neutrophils Percent Auto 76.3 % (50-75); Platelet Count 231 X10^3/uL (150-400); Red Blood Cell Count 3.77 X10^6/uL (4.0-5.2); Red Cell Distribution Width 14.9 % (11.6-14.8); White Blood Cell Count 6.8 X10^3/uL (4.5-11.0)
[2023-01-31 12:41] LABS: Alanine Aminotransferase 17 IU/L (<35); Albumin Globulin Ratio 1.3 (1.0-2.8); Alkaline Phosphatase 62 U/L (38-126); Aspartate Aminotransferase 26 IU/L (14-36); Bilirubin Total 0.8 mg/dL (0.2-1.3); Blood Urea Nitrogen 27 mg/dL (7-17); Calcium 9.6 mg/dL (8.4-10.2); Carbon Dioxide 23 mmol/L (22-32); Chloride 102 mmol/L (98-107); Estimated Glomerular Filt Rate > 60 mL/min (>60); Globulin 3.1 g/dL (1.7-4.1); Glucose 120 mg/dL (80-110); HEMOLYSIS 23 (0-50); Potassium 4.2 mmol/L (3.4-5.1); Sodium 134 mmol/L (137-145); Total Protein 7.1 g/dL (6.3-8.2)
[2023-01-31 12:57] LABS: Appearance Urine UA CLEAR; Bilirubin Urine UA NEGATIVE (NEGATIVE); Color Urine UA YELLOW; Glucose Urine UA NEGATIVE (Negative); Ketones Urine UA NEGATIVE (NEGATIVE); Leukocyte Esterase Urine UA 1+ (NEGATIVE); Nitrite Urine UA POSITIVE (Negative); Occult Blood Urine UA 2+ (Negative); Protein Urine UA NEGATIVE (Negative); Urobilinogen Urine UA 0.2 E.U./dL (0.2)
[2023-01-31 13:22] LABS: Bacteria Urine Many (>30); Culture Indicated Urine Specimen Cultured; RBC Urine 1-5/HPF (0-5/HPF); Squamous Epithelial Cell Urine 0-1 /HPF (0-5/HPF); WBC Urine 10-30/HPF (0-5/HPF); pH Urine UA 5.5 (4.5-8.0)
[2023-01-31 13:31] LABS: Troponin I < 0.012 ng/mL (0.01-0.034)
--- NOTE | 2023-01-31 13:42 | DI.CT.S_ITS ---
PROCEDURE: CT ABDOMEN PELVIS W CON INDICATIONS: Left flank pain with fever, pos UA TECHNIQUE: After the administration of intravenous contrast, axial sections acquired from the lung bases to the pubic symphysis. Coronal and sagittal reformats were performed. For radiation dose reduction, the following was used: automated exposure control, adjustment of mA and/or kV according to patient size. COMPARISON: [facility], CT, ABDOMEN/PELVIS WITH CONTRAST, 09/18/2012, 15:45. FINDINGS: Image quality: Excellent. Lung bases: Small left pleural effusion is seen. Mild dependent atelectasis in posterior aspect of bilateral lung bases are seen. Emphysematous changes also noted.. Heart: Heart size is normal, no pericardial effusion. ABDOMEN: Liver: Liver is normal in size. Multiple well-circumscribed hypodensities are again seen scattered in liver parenchyma measures up to 2.7 x 2.1 cm in size in right hepatic lobe unchanged in size and distribution as compared to 2013 study and likely represent benign process such as hepatic cysts.. Gallbladder: Gallbladder is within normal limits. Biliary ducts: Unremarkable. Pancreas: Unremarkable. Spleen: Spleen is normal in size. Multiple fairly well-circumscribed hypodensities are seen scattered in splenic parenchyma and measures up to 2.3 x 2.1 cm in size in medial aspect of spleen and 34 Hounsfield unit in density series 2, image 24. Adrenal Glands: Unremarkable. Kidneys and Ureters: Bilateral kidneys show normal size and enhancement. No obstructing renal stones or hydronephrosis. 2-3 millimeter bilateral nonobstructing renal calculi are seen. Bilateral renal cortical cysts are seen measures up to 2.3 x 2.3 cm in size in midpole of right kidney compared to 1 cm in size in 2013 study.. Stomach and Bowel: There is a small hiatal hernia. There is no bowel obstruction or abnormal bowel wall thickening. No mesenteric fat stranding. No abscess collection. Sigmoid diverticulosis is seen without colonic wall thickening or pericolonic fat stranding. Peritoneum: No abnormal intraperitoneal fluid. No free air. Ventral Wall: No hernias. Abdominal Nodes: No retroperitoneal or mesenteric adenopathy by size criteria. Vessels: There is ectasias of infrarenal abdominal aorta measures up to 2.7 cm in largest AP diameter. Moderate atherosclerotic calcifications throughout abdominal aorta is seen. IVC is normal in size. PELVIS: Pelvic Organs: Unremarkable. Bladder: Unremarkable. Pelvic Nodes: No enlarged lymph nodes. Miscellaneous: Small bilateral inguinal hernia are seen containing fat only. Bones: No suspicious bony lesions. No acute vertebral body compression fracture. IMPRESSION: 1. Tiny bilateral nonobstructing renal calculi and bilateral renal cysts as described above. No obstructing renal stones. No hydronephrosis or hydroureter. Normal appearing urinary bladder. 2. No bowel obstruction or abnormal bowel wall thickening. Sigmoid diverticulosis without evidence of acute diverticulitis. No free fluid or free air. No abscess collection. 3. Stable appearing hypodense lesions scattered in liver parenchyma likely represent benign process such as hepatic cysts. 4. Multiple well-circumscribed hypodensities scattered in splenic parenchyma increased in size and numbers compared to 2013 study concerning for splenic cysts versus areas of infarction. 5. Small left pleural effusion and bibasilar dependent atelectasis. 6. Ectasias of infrarenal abdominal aorta measures up to 2.7 cm in largest AP diameter. No abdominal aortic aneurysm. Moderate atherosclerotic disease. Dictated by: Brian Russ M.D. on 01/31/2023 at 14:34 Approved by: Brian Russ M.D. on 01/31/2023 at 14:41
--- NOTE | 2023-01-31 13:50 | PC.NURSE ---
ambulatory to CT in NAD
== END 2023-01-31 15:46 | disposition home or self-care (01) ==
PROVIDERS: Emergency Provider Physician Assistant; PCP Nurse Practitioner Family
DX: S29.011A Strain of muscle and tendon of front wall of thorax, initial encounter (principal); R07.82 Intercostal pain; N30.01 Acute cystitis with hematuria; R50.9 Fever, unspecified; Z86.16 Personal history of COVID-19
CPT/HCPCS: 71101; 74177; 80053; 81001; 84484; 85025; 87077; 87086; 87186; 93005; 96374; 99284; J1885; Q9967

== ENCOUNTER 2024-07-16 15:13 | Emergency (ER) | payer MEDICARE, OTHER, SELFPAY ==
[2024-07-16 15:16] VITALS: BP 157/66; PULSE 55; RESP 18; TEMP 36.8; O2SAT 97; BMI 29.0
--- NOTE | 2024-07-16 15:26 | DI.CT.S_ITS ---
PROCEDURE: CT FACIAL BONES WO CON INDICATIONS: fall/facial injury/no thinners TECHNIQUE: Noncontrast 2.5 mm thick axial images acquired from the mandible through the frontal sinuses, with coronal and sagittal reformatting. For radiation dose reduction, the following was used: automated exposure control, adjustment of mA and/or kV according to patient size. COMPARISON: None. FINDINGS: Image quality: Diagnostic Bones: Age indeterminate minimal deformity of the nasal bone. Zygomatic arches appear intact. No displaced mandible fracture. No TMJ dislocation. Orbital camp appear intact. Pterygoid plates appear intact. Sinuses and mastoids: Small left paranasal sinus mucous cysts. Otherwise, no significant paranasal sinus or mastoid opacity. Soft tissues: No masses, hematoma, or fluid collection. No lymphadenopathy by size criteria. There are vascular calcifications Brain: Separately dictated IMPRESSION: Age-indeterminate minimal deformity of the nasal bone, correlate with location of injury, otherwise, no acute displaced fracture or dislocation identified of the facial structures. Dictated by: Eusebio Hamm M.D. on 07/16/2024 at 15:54 Approved by: Eusebio Hamm M.D. on 07/16/2024 at 15:56
--- NOTE | 2024-07-16 15:26 | DI.CT.S_ITS ---
PROCEDURE: CT CERVICAL SPINE WO CON INDICATIONS: fall/facial injury/no thinners TECHNIQUE: Noncontrast 3 mm thick sections acquired from the skull base to the T4 level. Sagittal and coronal reformats were then constructed. For radiation dose reduction, the following was used: automated exposure control, adjustment of mA and/or kV according to patient size. COMPARISON: None. FINDINGS: Image quality: Diagnostic Bones: Moderate to severe cervical degenerative changes, there is also partial fusion of the C5-C6 vertebra. T1 superior endplate Schmorl's node. No traumatic subluxation. No acute displaced fracture is seen. Soft tissues: No apical pneumothorax. No pathologic prevertebral soft tissue swelling. Vascular calcifications. IMPRESSION: No displaced fracture or traumatic subluxation. Moderate to severe spondylosis. If there is high concern for further derangement, consider MRI evaluation. Dictated by: Eusebio Hamm M.D. on 07/16/2024 at 15:57 Approved by: Eusebio Hamm M.D. on 07/16/2024 at 15:59
--- NOTE | 2024-07-16 15:26 | DI.CT.S_ITS ---
PROCEDURE: CT HEAD/BRAIN WO CON INDICATIONS: fall/facial injury/no thinners TECHNIQUE: Noncontrast 4.5 mm thick angled axial sections acquired from the foramen magnum to the vertex, with coronal and sagittal reformats. For radiation dose reduction, the following was used: automated exposure control, adjustment of mA and/or kV according to patient size. COMPARISON: None. FINDINGS: Image quality: Diagnostic CSF spaces: Basal cisterns are patent. Lateral ventricles are symmetric. Volume: Vascular calcifications. 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 Volume loss is present. These findings are [id number] Brain: No acute hemorrhage. No gross loss of harmon-white differentiation Craniofacial structures: No significant paranasal sinus opacity. Small left paranasal sinus mucous cyst. IMPRESSION: No acute intracranial pathology. Dictated by: Eusebio Hamm M.D. on 07/16/2024 at 15:53 Approved by: Eusebio Hamm M.D. on 07/16/2024 at 15:54
--- NOTE | 2024-07-16 15:36 | ED_ITS ---
HPI - Fall General Chief Complaint: Fall Stated Complaint: facial injury s/p fall Time Seen by Provider: 07/16/24 15:34 Source: patient Mode of arrival: Ambulatory History of Present Illness HPI Narrative: 83-year-old female with a past medical history of hyperlipidemia, hypothyroidism presents for evaluation mechanical trip and fall. She states that around noon she tripped on a curb, states that she fell on her face, denies LOC denies blood thinner. States that medics did arrive evaluated her and was instructed to come into the ED if she felt like she wanted to be seen. At time of evaluation patient only complaining nose pain, does have a small skin tear noted to the top of the bridge of the nose but no other gross abnormalities noted. She denies any other injuries at this time. She states that she is not sure of her tetanus status but does not want it updated Related Data Previous Rx's Medication Instructions Recorded atorvastatin 10 mg tablet (Lipitor) 10 mg PO HS #90 tabs 10/01/16 levothyroxine 125 mcg tablet 125 mcg PO QDAY #90 tabs 10/01/16 (Synthroid) potassium chloride 20 mEq 20 meq PO Q DAY #90 tabs 10/01/16 tablet,extended release(part/cryst) (Klor-Con M) valsartan 160 1 tab PO QDAY #90 tabs 10/01/16 mg-hydrochlorothiazide 25 mg tablet (Diovan HCT) estradiol 0.05 mg/24 hr semiweekly 1 patch topical SEE INSTRUCTIONS 11/09/16 transdermal patch (Vivelle-Dot) #8 patches cefdinir 300 mg capsule 300 mg PO BID #10 caps 01/31/23 Allergies Allergy/AdvReac Type Severity Reaction Status Date / Time codeine [CODEINE] AdvReac Unknown somlescence Verified 11/21/17 10:18 lisinopril [LISINOPRIL] AdvReac Unknown cough Verified 11/21/17 10:18 Review of Systems Review of Systems Narrative: General: Positive Mechanical ground level fall, Denies fever, chills, weight loss HEENT: Denies headache, eye drainage, eye irritation, head trauma, sore throat, voice change Cardiovascular: Denies any chest pain, palpitations, tachycardia Respiratory: Denies any shortness of breath, cough, wheeze, stridor GI/: Denies any abdominal pain, nausea, vomiting, diarrhea, bright red blood per rectum, melanotic stools, urinary frequency, urinary retention, dysuria, hematuria MSK: Denies any joint pain, muscle pains, swelling Skin: Cut to the bridge of the nose Neuro: Denies any headache, lightheadedness, dizziness, fainting, weakness Psych: Denies SI/HI Patient History Medical History (Updated 07/16/24 @ 16:20 by Deonte Miguel DO) Polymyalgia rheumatica Surgical History Status post hysterectomy Status post appendectomy Social History Smoking Status: Never smoker Smoking Status: Never smoker alcohol intake frequency: holidays/special occasions only Exam Narrative Exam Narrative: General: Cooperative, well-developed, not in acute distress HEENT: Patient with skin tear noticed the top of the bridge of the nose, no septal hematoma, no epistaxis, PERRLA, normal sclera, eyelids normal, no palpable loose teeth, no dental fractures noted Neck: Active full range of motion, atraumatic Chest: Normal to inspection, negative crepitus, no overlying erythema ecchymosis Respiratory: Normal respiratory effort, not in acute respiratory distress, cl ear to auscultation bilaterally negative cough, wheeze, tachypnea, rhonchi, rales Cardiology: Regular rate rhythm negative gallop, murmur, rubs GI/: No tenderness to palpation, soft, non rigid, normal to inspection, exam deferred MSK: Full active range of motion in all 4 extremities, atraumatic, no tenderness to palpation of any bony prominences Skin: No rashes or lesions noted Neuro: Alert awake oriented x3, moves all 4 extremities spontaneously, cranial nerves intact, able to answer all questions appropriately follows commands appropriately Psych: Cooperative, negative suicidal or homicidal ideations Initial Vital Signs Initial Vital Signs: Vital Signs Temperature 98.2 F 07/16/24 15:16 Pulse Rate 55 L 07/16/24 15:16 Respiratory Rate 18 07/16/24 15:16 Blood Pressure 157/66 H 07/16/24 15:16 Pulse Oximetry 97 07/16/24 15:16 Oxygen Delivery Method Room Air 07/16/24 15:16 Course Orders Ordered: ED Orders 07/16/24 15:26 CT cervical spine wo con Stat CT facial bones wo con Stat CT head/brain wo con Stat Discontinued Medications Diphtheria/Tetanus/Acell Pertussis (Tet,Diph,Pertuss(Acell),Vac/Pf 0.5 Ml Syringe) 0.5 ml IM .ONCE ONE Stop: 07/16/24 16:02 Last Admin: 07/16/24 16:07 Dose: 0.5 ml Documented By: CLAIRE Vital Signs Vital signs: Vital Signs - 8 hr 07/16/24 15:16 Temperature 98.2 F Pulse Rate 55 L Respiratory Rate 18 Blood Pressure 157/66 H Pulse Oximetry 97 Oxygen Delivery Method Room Air MDM - Fall Differential Diagnosis Differential diagnosis: Likely other (Skin tear, maxillary fracture, intracranial hemorrhage, cervical neck fracture, nasal bone fracture) Imaging Data CT scan - head: Radiologist's Impression: [address] [address] [address] Scan Report Signed Patient: Payal López MR#: [id number] : 1940 Acct:[id number] Age/Sex: 83 / F Date of Service: 07/16/24 Loc: ED Accession Number: [id number] Procedure: CT head/brain wo con Ordering Provider: Deonte Miguel D.O. PROCEDURE: CT HEAD/BRAIN WO CON INDICATIONS: fall/facial injury/no thinners TECHNIQUE: Noncontrast 4.5 mm thick angled axial sections acquired from the foramen magnum to the vertex, with coronal and sagittal reformats. For radiation dose reduction, the following was used: automated exposure control, adjustment of mA and/or kV according to patient size. COMPARISON: None. FINDINGS: Image quality: Diagnostic CSF spaces: Basal cisterns are patent. Lateral ventricles are symmetric. Volume: Vascular calcifications. 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 Volume loss is present. These findings are [id number] Brain: No acute hemorrhage. No gross loss of harmon-white differentiation Craniofacial structures: No significant paranasal sinus opacity. Small left paranasal sinus mucous cyst. IMPRESSION: No acute intracranial pathology. CT - cervical spine: Radiologist's Impression: [address] [address] [address] Scan Report Signed Patient: Payal López MR#: [id number] : 1940 Acct:[id number] Age/Sex: 83 / F Date of Service: 07/16/24 Loc: ED Accession Number: [id number] Procedure: CT facial bones wo con Ordering Provider: Deonte Miguel D.O. PROCEDURE: CT FACIAL BONES WO CON INDICATIONS: fall/facial injury/no thinners TECHNIQUE: Noncontrast 2.5 mm thick axial images acquired from the mandible through the frontal sinuses, with coronal and sagittal reformatting. For radiation dose reduction, the following was used: automated exposure control, adjustment of mA and/or kV according to patient size. COMPARISON: None. FINDINGS: Image quality: Diagnostic Bones: Age indeterminate minimal deformity of the nasal bone. Zygomatic arches appear intact. No displaced mandible fracture. No TMJ dislocation. Orbital camp appear intact. Pterygoid plates appear intact. Sinuses and mastoids: Small left paranasal sinus mucous cysts. Otherwise, no significant paranasal sinus or mastoid opacity. Soft tissues: No masses, hematoma, or fluid collection. No lymphadenopathy by size criteria. There are vascular calcifications Brain: Separately dictated IMPRESSION: Age-indeterminate minimal deformity of the nasal bone, correlate with location of injury, otherwise, no acute displaced fracture or dislocation identified of the facial structures. CT facial bone: Radiologist's Impression: [place] [address] CT Scan Report Signed Patient: Payal López MR#: [id number] : 1940 Acct:[id number] Age/Sex: 83 / F Date of Service: 07/16/24 Loc: ED Accession Number: [id number] Procedure: CT facial bones wo con Ordering Provider: Deonte Miguel D.O. PROCEDURE: CT FACIAL BONES WO CON INDICATIONS: fall/facial injury/no thinners TECHNIQUE: Noncontrast 2.5 mm thick axial images acquired from the mandible through the frontal sinuses, with coronal and sagittal reformatting. For radiation dose reduction, the following was used: automated exposure control, adjustment of mA and/or kV according to patient size. COMPARISON: None. FINDINGS: Image quality: Diagnostic Bones: Age indeterminate minimal deformity of the nasal bone. Zygomatic arches appear intact. No displaced mandible fracture. No TMJ dislocation. Orbital camp appear intact. Pterygoid plates appear intact. Sinuses and mastoids: Small left paranasal sinus mucous cysts. Otherwise, no significant paranasal sinus or mastoid opacity. Soft tissues: No masses, hematoma, or fluid collection. No lymphadenopathy by size criteria. There are vascular calcifications Brain: Separately dictated IMPRESSION: Age-indeterminate minimal deformity of the nasal bone, correlate with location of injury, otherwise, no acute displaced fracture or dislocation identified of the facial structures. MDM Narrative Medical decision making narrative: 83-year-old female with a history of hypothyroidism, hyperlipidemia presenting for mechanical trip and fall. States that at noon she fell over a curb, hit her face. Denies LOC no blood thinners. Was evaluated by medics and was cleared but instructed come into the ED if she wanted any further evaluation. Patient on exam neurovascularly intact NIH of 0, she has no tenderness to palpation of any bony prominences, skin tear noted to the bridge of the nose no septal hematoma noted bilaterally. Patient unsure of tetanus status was updated here. Patient had CT scan of head face and neck no acute fractures noted, there is no indication for laceration repair at this time given tear of the skin. Patient was given strict return precautions she verbalized understanding of this and agrees to being discharged home with outpatient follow up Discharge Plan Departure Patient Disposition: Home Clinical Impression: Closed head injury, Ground-level fall Instructions: DI for Closed Head Injury Activity Restrictions/Additional Instructions: Please follow up with the primary care doctor Please read the discharge instructions sheet carefully and bring all papers to all doctor follow-up visits, as it may contain information that your doctor may want to see. Disease processes change and evolve, if your symptoms worsen or if you develop any new symptoms that are concerning to you please return for evaluation. Your evaluation today does not show any evidence of any life-thre atening/serious illnesses requiring admission to the hospital or surgery. Please follow-up with your doctor for re-evaluation in approximately 1 day. Seek immediate medical attention for any worrisome symptoms. *If you do not have a primary care provider please contact the [facility] Resource line at [phone]. They will ask some questions about your medical history and help get you set up with a doctor in the community. Prescriptions: No Action potassium chloride [Klor-Con M20] 20 MEQ tablet,ER particles/crystals 20 meq PO Q DAY Qty: 90 0RF atorvastatin [Lipitor] 10 MG tablet 10 mg PO HS Qty: 90 0RF levothyroxine [Synthroid] 125 MCG tablet 125 mcg PO QDAY Qty: 90 0RF valsartan-hydrochlorothiazide [Diovan HCT] 160 MG/25 MG tablet 1 tab PO QDAY Qty: 90 0RF estradiol [Vivelle-Dot] 0.05 MG/24 HR patch semiweekly 1 patch Topical SEE INSTRUCTIONS Qty: 8 0RF cefdinir 300 mg capsule 300 mg PO BID Qty: 10 0RF Referrals: Grace Miramontes ARNP [Primary Care Provider] - Stand Alone Forms: Patient Portal/API/Survey
[2024-07-16] MEDS: TET,DIPH,PERTUSS(ACELL),VAC/PF 0.5 ML SYRINGE IM (16:07)
[2024-07-16 16:27] VITALS: BP 125/70; PULSE 54
== END 2024-07-16 16:27 | disposition home or self-care (01) ==
PROVIDERS: Emergency Provider Student in an Organized Health Care Education/Training Program; PCP Nurse Practitioner Family
DX: S09.90XA Unspecified injury of head, initial encounter (principal); W01.0XXA Fall on same level from slipping, tripping and stumbling without subsequent striking against object, initial encounter; Z23 Encounter for immunization
CPT/HCPCS: 70450; 70486; 72125; 90471; 99283; 99284; 90715